=== PATIENT | female | born 1930 | race Caucasian/White ===

== ENCOUNTER 2016-10-27 12:14 | Inpatient (IN) | payer MEDICARE, BC ==
[~2016-10-27] VITALS: Ht 160 cm; Wt 61.6 kg
[2016-10-27] VITALS (10 sets, daily range): BP systolic 117–140; RESP 18–25; TEMP 97.6–100; Ht 160 cm; Wt 61.6 kg
[~2016-10-27 12:14] MED LIST: LIDOCAINE 2% SYR 5 ML IV ONE; PHENYLEPHRINE 10 MG/ML VIAL IV ONE; PROPOFOL 50ML PER ML IV ONE
[2016-10-27] MEDS ORDERED: MAG HYDROX 30 ML UDC PO PRN (12:30)
[2016-10-27] MEDS: DUONEB INH SCH ×4 (12:30→21:59)
[2016-10-27] MEDS ORDERED: GUAIFEN/DM 10 ML UDC PO PRN (12:30)
[2016-10-27] MEDS ORDERED: LEVOFLOXACIN 750 MG/150 ML 150 ML IV SCH (12:30)
[2016-10-27] MEDS ORDERED: SALINE FLUSH 10 ML FLUSH PRN (12:30)
[2016-10-27] MEDS ORDERED: ACETAMINOPHEN 325 MG TAB PO PRN (12:30)
[2016-10-27] MEDS ORDERED: ALU/MAG/SIM 30 ML UDC PO PRN (12:30)
[2016-10-27] MEDS ORDERED: BISACODYL EC 5 MG TAB PO PRN (12:30)
[2016-10-27] MEDS ORDERED: TEMAZEPAM 7.5 MG CAP PO PRN (12:30)
[2016-10-27] MEDS ORDERED: BISACODYL 10 MG SUPP RECTAL PRN (12:30)
[2016-10-27] MEDS ORDERED: PNEUMO VAC 25 MCG/0.5 ML VL IM.VACC ONE (14:50)
[2016-10-27] MEDS: FAMOTIDINE 20 MG TAB PO SCH ×2 (16:18→21:28)
[2016-10-27] MEDS: ENOXAPARIN 40 MG/0.4 ML SYR SUBQ SCH (16:19)
[2016-10-27] MEDS: SALINE FLUSH 10 ML FLUSH SCH ×2 (16:19→19:43)
[2016-10-27] MEDS ORDERED: SODIUM CHLORIDE 0.9% 1,000 ML IV SCH (19:25)
[2016-10-27] MEDS ORDERED: KCL CR 20 MEQ TAB PO ONE (19:25)
[2016-10-27] MEDS: POTASSIUM CHLORIDE PREMIX 50 ML IV SCH ×3 (19:48→23:11)
[2016-10-27] MEDS ORDERED: CEFTRIAXONE 2 GM in SODIUM CHLORIDE 0.9% 50 ML IV ONE (20:55)
[2016-10-27] MEDS ORDERED: PHARMACY TO DOSE VANCOMYCIN IV SCH (21:05)
[2016-10-27] MEDS ORDERED: Furosemide 40 MG/4 ML VIAL IV ONE (21:25)
[2016-10-27] MEDS ORDERED: VANCOMYCIN 1,250 MG in SODIUM CHLORIDE 0.9% 250 ML IV ONE (21:45)
[2016-10-27] MEDS: TIZANIDINE 4 MG TAB PO SCH (23:09)
[2016-10-27] MEDS: LORAZEPAM 0.5 MG TAB PO SCH (23:09)
[2016-10-28] VITALS (74 sets, daily range): BP systolic 70–176; RESP 17–33; TEMP 98.3–99.6
[2016-10-28] MEDS ORDERED: SODIUM CHLORIDE 0.9% 1,000 ML IV ONE (00:25)
[2016-10-28] MEDS ORDERED: FLUMAZENIL 0.5 MG/5 ML VIAL IV ONE (00:53)
[2016-10-28] MEDS: DUONEB INH SCH ×6 (02:39→22:38)
[2016-10-28] MEDS: SODIUM CHLORIDE 0.9% FLUSH BAG 500 ML IV SCH (05:55)
[2016-10-28] MEDS ORDERED: KCL 20 MEQ PACK PO ONE (09:00)
[2016-10-28] MEDS ORDERED: CARVEDILOL 25 MG TAB PO SCH (09:00)
[2016-10-28] MEDS ORDERED: HCTZ 12.5 MG CAP PO SCH (09:00)
[2016-10-28] MEDS: FAMOTIDINE 20 MG TAB PO SCH ×2 (09:26→20:03)
[2016-10-28] MEDS: CEFTRIAXONE 2 GM in SODIUM CHLORIDE 0.9% 50 ML IV SCH (09:26)
[2016-10-28] MEDS: PREDNISONE 50 MG TAB PO SCH (09:27)
[2016-10-28] MEDS: SALINE FLUSH 10 ML FLUSH SCH ×2 (09:27→20:03)
[2016-10-28] MEDS: ENOXAPARIN 40 MG/0.4 ML SYR SUBQ SCH (09:45)
[2016-10-28] MEDS ORDERED: VANCOMYCIN 750 MG in SODIUM CHLORIDE 0.9% 250 ML IV SCH (10:00)
[2016-10-28] MEDS: CARVEDILOL 25 MG TAB PO SCH (17:29)
[2016-10-28] MEDS: TIZANIDINE 4 MG TAB PO SCH (20:03)
[2016-10-28] MEDS: LORAZEPAM 0.5 MG TAB PO SCH (20:21)
[2016-10-29] VITALS (23 sets, daily range): BP systolic 114–173; RESP 16–23; TEMP 98.1–98.6
[2016-10-29] MEDS: DUONEB INH SCH ×6 (02:38→23:00)
[2016-10-29] MEDS: SODIUM CHLORIDE 0.9% FLUSH BAG 500 ML IV SCH (06:27)
[2016-10-29] MEDS: CEFTRIAXONE 2 GM in SODIUM CHLORIDE 0.9% 50 ML IV SCH (08:00)
[2016-10-29] MEDS: PREDNISONE 50 MG TAB PO SCH (08:01)
[2016-10-29] MEDS: ENOXAPARIN 40 MG/0.4 ML SYR SUBQ SCH (08:01)
[2016-10-29] MEDS: SALINE FLUSH 10 ML FLUSH SCH ×2 (08:02→20:01)
[2016-10-29] MEDS: CARVEDILOL 25 MG TAB PO SCH (08:02)
[2016-10-29] MEDS: FAMOTIDINE 20 MG TAB PO SCH ×2 (08:02→20:01)
[2016-10-29] MEDS: TIZANIDINE 4 MG TAB PO SCH (20:01)
[2016-10-29] MEDS: LORAZEPAM 0.5 MG TAB PO SCH (20:01)
[2016-10-30] MEDS: DUONEB INH SCH ×6 (02:30→23:00)
[2016-10-30 03:25] VITALS: BP_SYST 160; RESP 20; TEMP 98.2
[2016-10-30] MEDS: SODIUM CHLORIDE 0.9% FLUSH BAG 500 ML IV SCH (05:45)
[2016-10-30 07:21] VITALS: BP_SYST 180; RESP 20; TEMP 98.4
[2016-10-30] MEDS: CEFTRIAXONE 2 GM in SODIUM CHLORIDE 0.9% 50 ML IV SCH (08:07)
[2016-10-30] MEDS: SALINE FLUSH 10 ML FLUSH SCH ×2 (08:07→20:01)
[2016-10-30] MEDS: FAMOTIDINE 20 MG TAB PO SCH ×2 (08:08→20:02)
[2016-10-30] MEDS: CARVEDILOL 25 MG TAB PO SCH (08:08)
[2016-10-30] MEDS: ENOXAPARIN 40 MG/0.4 ML SYR SUBQ SCH (08:08)
[2016-10-30] MEDS: PREDNISONE 50 MG TAB PO SCH (08:08)
[2016-10-30] MEDS ORDERED: SODIUM PHOSPHATE 30 MM in SODIUM CHLORIDE 0.9% 250 ML IV ONE (08:15)
[2016-10-30] MEDS ORDERED: TIZANIDINE 4 MG TAB PO PRN (09:20)
[2016-10-30] MEDS: MAGNESIUM SULF 1 GM/100 ML 100 ML IV SCH ×2 (09:47→11:21)
[2016-10-30] MEDS: amLODIPine 10 MG TAB PO SCH (09:52)
[2016-10-30] MEDS: Furosemide 20 MG/2 ML VIAL IV SCH ×2 (09:52→17:00)
[2016-10-30 11:43] VITALS: BP_SYST 154; RESP 20; TEMP 98.5
[2016-10-30 15:18] VITALS: BP_SYST 159; RESP 22; TEMP 98.5
[2016-10-30 19:20] VITALS: BP_SYST 184; RESP 18; TEMP 98.2
[2016-10-30] MEDS: LORAZEPAM 0.5 MG TAB PO SCH (20:01)
[2016-10-30 23:29] VITALS: BP_SYST 175; RESP 18; TEMP 98.8
[2016-10-31] MEDS: DUONEB INH SCH ×6 (02:48→22:17)
[2016-10-31 03:37] VITALS: BP_SYST 159; RESP 20; TEMP 98.7
[2016-10-31] MEDS: SODIUM CHLORIDE 0.9% FLUSH BAG 500 ML IV SCH (05:45)
[2016-10-31 07:27] VITALS: BP_SYST 173; RESP 20; TEMP 98.9
[2016-10-31] MEDS: CARVEDILOL 25 MG TAB PO SCH (08:33)
[2016-10-31] MEDS: amLODIPine 10 MG TAB PO SCH (08:33)
[2016-10-31] MEDS: PREDNISONE 50 MG TAB PO SCH (08:33)
[2016-10-31] MEDS: FAMOTIDINE 20 MG TAB PO SCH ×2 (08:33→20:12)
[2016-10-31] MEDS: CEFTRIAXONE 2 GM in SODIUM CHLORIDE 0.9% 50 ML IV SCH (08:33)
[2016-10-31] MEDS: SALINE FLUSH 10 ML FLUSH SCH ×2 (08:33→20:12)
[2016-10-31] MEDS: ENOXAPARIN 40 MG/0.4 ML SYR SUBQ SCH (08:34)
[2016-10-31] MEDS: Furosemide 20 MG/2 ML VIAL IV SCH ×2 (09:00→16:13)
[2016-10-31] MEDS ORDERED: KCL CR 10 MEQ CAP PO ONE (13:05)
[2016-10-31 15:14] VITALS: BP_SYST 158; RESP 20; TEMP 98.8
[2016-10-31] MEDS: LISINOPRIL 20 MG TAB PO SCH (18:50)
[2016-10-31 19:25] VITALS: BP_SYST 175; RESP 18; TEMP 98.3
[2016-10-31] MEDS ORDERED: KCL 20 MEQ/15 ML UDC PO ONE (20:00)
[2016-10-31] MEDS: LORAZEPAM 0.5 MG TAB PO SCH (20:12)
[2016-10-31 23:25] VITALS: BP_SYST 168; RESP 18; TEMP 98.2
[2016-11-01] MEDS: DUONEB INH SCH ×6 (02:12→22:19)
[2016-11-01 03:40] VITALS: BP_SYST 178; RESP 17; TEMP 99.1
[2016-11-01] MEDS: SODIUM CHLORIDE 0.9% FLUSH BAG 500 ML IV SCH (05:53)
[2016-11-01 07:34] VITALS: BP_SYST 179; RESP 18; TEMP 99
[2016-11-01] MEDS: Furosemide 20 MG/2 ML VIAL IV SCH ×2 (08:28→14:41)
[2016-11-01] MEDS: CEFTRIAXONE 2 GM in SODIUM CHLORIDE 0.9% 50 ML IV SCH (08:28)
[2016-11-01] MEDS: FAMOTIDINE 20 MG TAB PO SCH ×2 (08:29→20:14)
[2016-11-01] MEDS: LISINOPRIL 20 MG TAB PO SCH (08:29)
[2016-11-01] MEDS: CARVEDILOL 25 MG TAB PO SCH (08:29)
[2016-11-01] MEDS: PREDNISONE 50 MG TAB PO SCH (08:30)
[2016-11-01] MEDS: amLODIPine 10 MG TAB PO SCH (08:30)
[2016-11-01] MEDS: SALINE FLUSH 10 ML FLUSH SCH ×2 (08:31→20:14)
[2016-11-01] MEDS: ENOXAPARIN 40 MG/0.4 ML SYR SUBQ SCH (08:31)
[2016-11-01 10:56] VITALS: BP_SYST 166; RESP 20; TEMP 98.3
[2016-11-01 16:34] VITALS: BP_SYST 193; RESP 20; TEMP 98.3
[2016-11-01 19:00] VITALS: BP_SYST 184; RESP 18; TEMP 98.3
[2016-11-01] MEDS: LORAZEPAM 0.5 MG TAB PO SCH (20:14)
[2016-11-01 23:30] VITALS: BP_SYST 151; RESP 18; TEMP 98.3
[2016-11-02] VITALS (7 sets, daily range): BP systolic 108–166; RESP 18–24; TEMP 98.1–98.9
[2016-11-02] MEDS: DUONEB INH SCH ×5 (02:24→17:42)
[2016-11-02] MEDS: SODIUM CHLORIDE 0.9% FLUSH BAG 500 ML IV SCH (06:12)
[2016-11-02] MEDS: amLODIPine 10 MG TAB PO SCH (08:13)
[2016-11-02] MEDS: LISINOPRIL 20 MG TAB PO SCH (08:13)
[2016-11-02] MEDS: FAMOTIDINE 20 MG TAB PO SCH ×2 (08:13→21:06)
[2016-11-02] MEDS: SALINE FLUSH 10 ML FLUSH SCH ×2 (08:14→21:07)
[2016-11-02] MEDS: CEFTRIAXONE 2 GM in SODIUM CHLORIDE 0.9% 50 ML IV SCH (08:14)
[2016-11-02] MEDS: CARVEDILOL 25 MG TAB PO SCH (08:14)
[2016-11-02] MEDS: Furosemide 20 MG/2 ML VIAL IV SCH ×2 (08:14→16:58)
[2016-11-02] MEDS: ENOXAPARIN 40 MG/0.4 ML SYR SUBQ SCH (08:17)
[2016-11-02] MEDS: LORAZEPAM 0.5 MG TAB PO SCH (21:07)
[2016-11-03] VITALS (24 sets, daily range): BP systolic 50–154; RESP 16–24; TEMP 96.4–98.9
[2016-11-03] MEDS: DUONEB INH SCH ×7 (00:34→22:14)
[2016-11-03] MEDS: SODIUM CHLORIDE 0.9% FLUSH BAG 500 ML IV SCH (06:02)
[2016-11-03] MEDS: CARVEDILOL 25 MG TAB PO SCH (07:47)
[2016-11-03] MEDS: FAMOTIDINE 20 MG TAB PO SCH ×2 (07:47→20:20)
[2016-11-03] MEDS: CEFTRIAXONE 2 GM in SODIUM CHLORIDE 0.9% 50 ML IV SCH (07:47)
[2016-11-03] MEDS: LISINOPRIL 20 MG TAB PO SCH (07:47)
[2016-11-03] MEDS: amLODIPine 10 MG TAB PO SCH (07:47)
[2016-11-03] MEDS: Furosemide 20 MG/2 ML VIAL IV SCH ×2 (07:48→17:57)
[2016-11-03] MEDS: SALINE FLUSH 10 ML FLUSH SCH ×2 (07:48→20:20)
[2016-11-03] MEDS: ENOXAPARIN 40 MG/0.4 ML SYR SUBQ SCH (07:50)
[2016-11-03] MEDS ORDERED: LACT RINGERS 1,000 ML IV SCH ×2 (10:00→10:05)
[2016-11-03] MEDS ORDERED: LIDOCAINE 1% BUFFERED 1 ML SYR INTRADERM PRN ×2 (10:00→10:05)
[2016-11-03] MEDS: LORAZEPAM 0.5 MG TAB PO SCH (20:20)
[2016-11-04] MEDS: DUONEB INH SCH ×6 (02:08→22:35)
[2016-11-04 03:19] VITALS: BP_SYST 126; RESP 16; TEMP 99.2
[2016-11-04] MEDS: SODIUM CHLORIDE 0.9% FLUSH BAG 500 ML IV SCH (05:24)
[2016-11-04 07:37] VITALS: BP_SYST 146; RESP 16; TEMP 98.6
[2016-11-04] MEDS: SALINE FLUSH 10 ML FLUSH SCH ×2 (08:49→20:37)
[2016-11-04] MEDS: LISINOPRIL 20 MG TAB PO SCH (08:49)
[2016-11-04] MEDS: FAMOTIDINE 20 MG TAB PO SCH ×2 (08:49→20:36)
[2016-11-04] MEDS: CARVEDILOL 25 MG TAB PO SCH (08:49)
[2016-11-04] MEDS: Furosemide 20 MG/2 ML VIAL IV SCH ×2 (08:49→17:31)
[2016-11-04] MEDS: amLODIPine 10 MG TAB PO SCH (08:49)
[2016-11-04] MEDS: ENOXAPARIN 40 MG/0.4 ML SYR SUBQ SCH (08:50)
[2016-11-04] MEDS ORDERED: FLUCONAZOLE 150 MG TAB PO ONE (11:00)
[2016-11-04 11:04] VITALS: BP_SYST 106; RESP 16; TEMP 98.1
[2016-11-04 14:53] VITALS: BP_SYST 124; RESP 16; TEMP 98.3
[2016-11-04 20:07] VITALS: BP_SYST 115; RESP 16; TEMP 98.8
[2016-11-04] MEDS: LORAZEPAM 0.5 MG TAB PO SCH (20:37)
[2016-11-04 23:34] VITALS: BP_SYST 123; RESP 16; TEMP 98.5
[2016-11-05] MEDS: DUONEB INH SCH ×4 (02:02→15:00)
[2016-11-05 03:46] VITALS: BP_SYST 130; RESP 16; TEMP 97.9
[2016-11-05] MEDS: SODIUM CHLORIDE 0.9% FLUSH BAG 500 ML IV SCH (05:30)
[2016-11-05 07:29] VITALS: BP_SYST 144; RESP 16; TEMP 98.4
[2016-11-05] MEDS ORDERED: FLUCONAZOLE 150 MG TAB PO SCH (09:00)
[2016-11-05] MEDS: ENOXAPARIN 40 MG/0.4 ML SYR SUBQ SCH (09:00)
[2016-11-05] MEDS: FAMOTIDINE 20 MG TAB PO SCH (09:33)
[2016-11-05] MEDS: SALINE FLUSH 10 ML FLUSH SCH (09:33)
[2016-11-05] MEDS: Furosemide 20 MG/2 ML VIAL IV SCH (09:33)
[2016-11-05] MEDS: CARVEDILOL 25 MG TAB PO SCH (09:33)
[2016-11-05] MEDS: LISINOPRIL 20 MG TAB PO SCH (09:33)
[2016-11-05] MEDS: amLODIPine 10 MG TAB PO SCH (09:34)
[2016-11-05 11:47] VITALS: BP_SYST 117; RESP 16; TEMP 98.1
[2016-11-05 15:28] VITALS: BP_SYST 117; RESP 16; TEMP 98.1
== END 2016-11-05 16:25 | disposition home health service (06) | DRG 871 ==
LOC: ENRESERVDT → ENRESERVTM → EDSEX → MERGE 12:14 → ENPENDDIS 13:39 → 4NT 13:39 → CCU 22:28 → PCU 10-29 10:53
PROVIDERS: ADMIT Family Medicine; ATTEND Family Medicine
PROC: 0BB58ZX Excision of Right Middle Lobe Bronchus, Via Natural or Artificial Opening Endoscopic, Diagnostic (ICD-10-PCS; 2016-11-03)
PROC: 0B968ZX Drainage of Right Lower Lobe Bronchus, Via Natural or Artificial Opening Endoscopic, Diagnostic (ICD-10-PCS; 2016-11-03)
PROC: 0BB68ZX Excision of Right Lower Lobe Bronchus, Via Natural or Artificial Opening Endoscopic, Diagnostic (ICD-10-PCS; principal; 2016-11-03 10:30)
CPT/HCPCS: 36430; 36600; 71010; 71250; 76604; 80048; 80053; 81001; 82570; 82803; 83605; 83735; 83880; 83935; 84100; 84300; 84439; 84443; 85007; 85025; 85027; 85610; 85652; 86141; 86850; 86900; 86901; 86923; 87040; 87071; 87102; 87116; 87205; 87206; 87278; 87299; 87493; 87496; 87529; 87798; 88108; 89051; 90732; 93306; 94640; 94667; 94668; 94762; 94799; 99232; 99233; 99291